=== PATIENT | female | born 1945 | race Caucasian/White ===

== ENCOUNTER 2018-01-29 18:02 | Inpatient (IN) | payer MEDICARE, BC ==
[~2018-01-29] VITALS: Ht 170.2 cm; Wt 88.5 kg
[~2018-01-29 18:02] MED LIST: ASPI-1160 PO; ATOR40TA70 PO; BUPR-102 PO; CHOL100046 PO; DORZ10DR9 EACHEYE; FLUO-124 PO; MULT-1146 PO; VIT1CAPS5 PO; XALAO EACHEYE; [UNRECOGNIZED DRUG - CODE] PO
[2018-01-29] MEDS ORDERED: IPRATROPIUM/ALBUTEROL 0.5-3(2.5)MG/3ML NEB HHN PRN (18:15)
[2018-01-29] MEDS ORDERED: ACETAMINOPHEN 325MG TABLET PO PRN (18:15)
[2018-01-29] MEDS ORDERED: LORAZEPAM 0.5MG TABLET PO PRN (18:15)
[2018-01-29] MEDS ORDERED: ONDANSETRON HCL 4MG TABLET PO PRN (18:15)
[2018-01-29] MEDS ORDERED: DIPHENHYDRAMINE 25MG CAPSULE PO PRN (18:15)
[2018-01-29] MEDS ORDERED: NITROGLYCERIN 0.4MG TABLET SL SL PRN (18:15)
[2018-01-29] MEDS ORDERED: HYDROCODONE/ACETAMINOPHEN 10/325MG TABLET PO PRN ×2 (18:15)
[2018-01-29] MEDS ORDERED: MORPHINE SULFATE 4 MG/ML CPJ (NOT FOR IM USE) IV PRN (18:15)
[2018-01-29 18:55] VITALS: BP 106/53
[2018-01-29 20:00] VITALS: BP 102/55
[2018-01-29] MEDS: FAMOTIDINE 20MG TABLET PO SCH (20:52)
[2018-01-29] MEDS: ASCORBIC ACID 500 MG TABLET PO SCH (20:52)
[2018-01-29] MEDS: SENNOSIDES/DOCUSATE SOD 8.6/50MG TABLET PO SCH (20:52)
[2018-01-29] MEDS: ATORVASTATIN CALCIUM 40MG TABLET PO SCH (20:52)
[2018-01-29 21:00] VITALS: BP 102/55
[2018-01-29] MEDS: METOPROLOL TARTRATE 25MG TABLET PO SCH (21:00)
[2018-01-30] MEDS: LATANOPROST 0.005% OPHTH DROPS 2.5ML EACHEYE SCH ×2 (03:08→21:09)
[2018-01-30 06:54] LABS: CHLORIDE 111 mEq/L (98-107)
[2018-01-30 07:05] LABS: PREALBUMIN 10.4 mg/dL (20.0-40.0)
[2018-01-30 07:22] LABS: BASOPHILS % 0.9 % (0.0-2.0); HEMATOCRIT. 24.9 % (36.0-48.0); HEMOGLOBIN. 8.8 g/dL (12.0-16.0); LYMPHOCYTES % 28.6 % (20.0-50.0); MEAN CORPUSCULAR HEMOGLOBIN 31.4 pg (28.0-32.0); MEAN CORPUSCULAR VOLUME 89.6 fL (81.0-99.0); MEAN PLATELET VOLUME 8.6 fl (7.4-10.4); MONOCYTES % 10.4 % (2.0-8.0); NEUTROPHILS % 53.1 % (40.0-76.0); PLATELET 215 x1000/uL (130-400); RED BLOOD CELL COUNT 2.78 mill/uL (4.2-5.4)
[2018-01-30 08:00] VITALS: BP 132/64
[2018-01-30] MEDS: FERROUS SULFATE 300MG/5ML UDC PO SCH ×3 (09:03→18:16)
[2018-01-30] MEDS: ASPIRIN 81MG TABLET PO SCH (09:04)
[2018-01-30] MEDS: METOPROLOL TARTRATE 25MG TABLET PO SCH ×2 (09:04→21:00)
[2018-01-30] MEDS: ASCORBIC ACID 500 MG TABLET PO SCH ×2 (09:05→21:04)
[2018-01-30] MEDS: ZINC SULFATE 220 MG ( 50 ) CAPSULE PO SCH (09:05)
[2018-01-30] MEDS: FAMOTIDINE 20MG TABLET PO SCH ×2 (09:05→21:04)
[2018-01-30] MEDS: FLUOXETINE HCL 20MG CAPSULE PO SCH (09:07)
[2018-01-30] MEDS: ENOXAPARIN 40MG/0.4ML SYR SUBCUT SCH (09:08)
[2018-01-30] MEDS: DORZOLAM/TIMOLOL 2.23/0.68% OPHTH DROPS 10ML BOTHEYE SCH ×2 (09:08→18:16)
[2018-01-30] MEDS ORDERED: POTASSIUM CHLORIDE 20MEQ/PACKET PO SCH (09:15)
[2018-01-30] MEDS: LACTULOSE 20G/30ML UDC PO SCH (12:14)
[2018-01-30] MEDS: DOCUSATE SODIUM 100MG CAPSULE PO SCH (18:15)
[2018-01-30 20:00] VITALS: BP 124/72
[2018-01-30] MEDS: POLYETHYLENE GLYCOL 3350 (17GM) 1 DOSE PACK PO SCH (21:02)
[2018-01-30] MEDS: SENNOSIDES/DOCUSATE SOD 8.6/50MG TABLET PO SCH (21:04)
[2018-01-30] MEDS: ATORVASTATIN CALCIUM 40MG TABLET PO SCH (21:04)
[2018-01-30] MEDS: OXYCODONE HCL 5MG TABLET PO PRN (21:08)
[2018-01-30 23:03] LABS: CLARITY URINE CLEAR (CLEAR); COLOR URINE YELLOW (YELLOW); KETONES URINE NEGATIVE (NEGATIVE); LEUKOCYTE ESTERASE URINE TRACE (NEGATIVE); NITRITE URINE NEGATIVE (NEGATIVE); OCCULT BLOOD URINE NEGATIVE (NEGATIVE); PROTEIN URINE NEGATIVE (NEGATIVE); SPECIFIC GRAVITY URINE 1.014 (1.005-1.030)
[2018-01-31 06:46] LABS: BASOPHILS % 1.1 % (0.0-2.0); EOSINOPHILS % 7.1 % (0.0-5.0); HEMATOCRIT. 25.1 % (36.0-48.0); HEMOGLOBIN. 8.5 g/dL (12.0-16.0); LYMPHOCYTES % 32.8 % (20.0-50.0); MEAN CORPUSCULAR HEMOGLOBIN 30.5 pg (28.0-32.0); MEAN CORPUSCULAR VOLUME 90.1 fL (81.0-99.0); MEAN PLATELET VOLUME 8.3 fl (7.4-10.4); MONOCYTES % 12.2 % (2.0-8.0); NEUTROPHILS % 46.8 % (40.0-76.0); PLATELET 252 x1000/uL (130-400); RED BLOOD CELL COUNT 2.79 mill/uL (4.2-5.4)
[2018-01-31 07:17] LABS: CHLORIDE 109 mEq/L (98-107)
[2018-01-31 08:00] VITALS: BP 129/58
[2018-01-31] MEDS: FLUOXETINE HCL 20MG CAPSULE PO SCH (08:17)
[2018-01-31] MEDS: OXYCODONE HCL 5MG TABLET PO PRN ×4 (08:19→12:59)
[2018-01-31] MEDS: FERROUS SULFATE 325MG TABLET PO SCH ×3 (08:21→17:56)
[2018-01-31] MEDS: ASCORBIC ACID 500 MG TABLET PO SCH ×2 (08:23→22:24)
[2018-01-31] MEDS: ASPIRIN 81MG TABLET PO SCH (08:23)
[2018-01-31] MEDS: DOCUSATE SODIUM 100MG CAPSULE PO SCH ×2 (08:23→17:56)
[2018-01-31] MEDS: ZINC SULFATE 220 MG ( 50 ) CAPSULE PO SCH (08:23)
[2018-01-31] MEDS: FAMOTIDINE 20MG TABLET PO SCH ×2 (08:24→22:24)
[2018-01-31] MEDS: METOPROLOL TARTRATE 25MG TABLET PO SCH ×2 (08:24→21:00)
[2018-01-31] MEDS: DORZOLAM/TIMOLOL 2.23/0.68% OPHTH DROPS 10ML BOTHEYE SCH ×2 (08:26→17:56)
[2018-01-31] MEDS: ENOXAPARIN 40MG/0.4ML SYR SUBCUT SCH (08:26)
[2018-01-31] MEDS: LACTULOSE 20G/30ML UDC PO SCH (08:26)
[2018-01-31] MEDS ORDERED: FERROUS SULFATE 325MG TABLET PO SCH (09:00)
[2018-01-31 10:49] LABS: HEPATITIS B SURFACE ANTIGEN NEGATIVE
[2018-01-31 11:15] LABS: HEPATITIS B CORE AB IGM NEGATIVE
[2018-01-31 11:17] LABS: HEPATITIS A AB IGM NEGATIVE (NEGATIVE)
[2018-01-31] MEDS ORDERED: POTASSIUM CHLORIDE 20MEQ/PACKET PO SCH (12:00)
[2018-01-31 20:00] VITALS: BP 107/50
[2018-01-31] MEDS: POLYETHYLENE GLYCOL 3350 (17GM) 1 DOSE PACK PO SCH (21:00)
[2018-01-31] MEDS: SENNOSIDES/DOCUSATE SOD 8.6/50MG TABLET PO SCH (22:24)
[2018-01-31] MEDS: ATORVASTATIN CALCIUM 40MG TABLET PO SCH (22:24)
[2018-01-31] MEDS: LATANOPROST 0.005% OPHTH DROPS 2.5ML EACHEYE SCH (22:25)
[2018-02-01 07:39] LABS: BASOPHILS % 1.1 % (0.0-2.0); EOSINOPHILS % 5.2 % (0.0-5.0); HEMATOCRIT. 26.1 % (36.0-48.0); HEMOGLOBIN. 8.9 g/dL (12.0-16.0); LYMPHOCYTES % 25.1 % (20.0-50.0); MEAN CORPUSCULAR HEMOGLOBIN 30.6 pg (28.0-32.0); MEAN PLATELET VOLUME 8.1 fl (7.4-10.4); MONOCYTES % 11.8 % (2.0-8.0); NEUTROPHILS % 56.8 % (40.0-76.0); PLATELET 296 x1000/uL (130-400); RED BLOOD CELL COUNT 2.91 mill/uL (4.2-5.4)
[2018-02-01 08:00] VITALS: BP 137/61
[2018-02-01] MEDS: FAMOTIDINE 20MG TABLET PO SCH ×2 (08:34→21:35)
[2018-02-01] MEDS: FERROUS SULFATE 325MG TABLET PO SCH ×3 (08:34→17:40)
[2018-02-01] MEDS: FLUOXETINE HCL 20MG CAPSULE PO SCH (08:34)
[2018-02-01] MEDS: OXYCODONE HCL 5MG TABLET PO PRN ×3 (08:34→20:34)
[2018-02-01] MEDS: ZINC SULFATE 220 MG ( 50 ) CAPSULE PO SCH (08:34)
[2018-02-01] MEDS: ASCORBIC ACID 500 MG TABLET PO SCH ×2 (08:34→21:35)
[2018-02-01] MEDS: ASPIRIN 81MG TABLET PO SCH (08:34)
[2018-02-01 08:37] LABS: CHLORIDE 108 mEq/L (98-107)
[2018-02-01] MEDS: METOPROLOL TARTRATE 25MG TABLET PO SCH ×2 (08:38→21:00)
[2018-02-01 08:46] LABS: HDL CHOLESTEROL 36 mg/dL (40-59)
[2018-02-01] MEDS: ENOXAPARIN 40MG/0.4ML SYR SUBCUT SCH (08:46)
[2018-02-01 08:48] LABS: LDL CHOLESTEROL 68 mg/dL (5-100); TOTAL IRON BINDING CAPACITY 243 ug/dL (250-450)
[2018-02-01 10:02] LABS: FERRITIN 71 ng/mL (10-291)
[2018-02-01 12:40] LABS: FOLIC ACID (FOLATE) SERUM >20 ng/mL ng/mL (>5.38)
[2018-02-01 12:51] LABS: VITAMIN B12 SERUM 421 pg/mL (211-911)
[2018-02-01] MEDS: DORZOLAM/TIMOLOL 2.23/0.68% OPHTH DROPS 10ML BOTHEYE SCH ×2 (12:53→17:41)
[2018-02-01 13:57] LABS: CLARITY URINE CLEAR (CLEAR); COLOR URINE YELLOW (YELLOW); KETONES URINE NEGATIVE (NEGATIVE); LEUKOCYTE ESTERASE URINE 2+ (NEGATIVE); NITRITE URINE NEGATIVE (NEGATIVE); OCCULT BLOOD URINE NEGATIVE (NEGATIVE); PH URINE 6.5 (4.5-8.0); PROTEIN URINE NEGATIVE (NEGATIVE); SPECIFIC GRAVITY URINE 1.014 (1.005-1.030)
[2018-02-01 20:00] VITALS: BP 120/72
[2018-02-01] MEDS: ATORVASTATIN CALCIUM 40MG TABLET PO SCH (21:35)
[2018-02-01] MEDS: LATANOPROST 0.005% OPHTH DROPS 2.5ML EACHEYE SCH (21:36)
[2018-02-01] MEDS: POLYETHYLENE GLYCOL 3350 (17GM) 1 DOSE PACK PO SCH (21:43)
[2018-02-02 08:00] VITALS: BP 129/65
[2018-02-02] MEDS: ZINC SULFATE 220 MG ( 50 ) CAPSULE PO SCH (08:33)
[2018-02-02] MEDS: ASPIRIN 81MG TABLET PO SCH (08:33)
[2018-02-02] MEDS: FAMOTIDINE 20MG TABLET PO SCH ×2 (08:33→21:08)
[2018-02-02] MEDS: FLUOXETINE HCL 20MG CAPSULE PO SCH (08:33)
[2018-02-02] MEDS: ENOXAPARIN 40MG/0.4ML SYR SUBCUT SCH (08:34)
[2018-02-02] MEDS: ASCORBIC ACID 500 MG TABLET PO SCH ×2 (08:34→21:08)
[2018-02-02] MEDS: FERROUS SULFATE 325MG TABLET PO SCH ×3 (08:34→17:00)
[2018-02-02] MEDS: METOPROLOL TARTRATE 25MG TABLET PO SCH ×2 (08:35→22:24)
[2018-02-02] MEDS: OXYCODONE HCL 5MG TABLET PO PRN ×3 (08:35→21:16)
[2018-02-02] MEDS: DORZOLAM/TIMOLOL 2.23/0.68% OPHTH DROPS 10ML BOTHEYE SCH ×2 (08:36→17:00)
[2018-02-02 20:00] VITALS: BP 130/66
[2018-02-02] MEDS: POLYETHYLENE GLYCOL 3350 (17GM) 1 DOSE PACK PO SCH (21:08)
[2018-02-02] MEDS: ATORVASTATIN CALCIUM 40MG TABLET PO SCH (21:08)
[2018-02-02] MEDS: LATANOPROST 0.005% OPHTH DROPS 2.5ML EACHEYE SCH (21:16)
[2018-02-03 06:39] LABS: CHLORIDE 108 mEq/L (98-107)
[2018-02-03 06:59] LABS: EOSINOPHILS % 5.9 % (0.0-5.0); HEMATOCRIT. 26.8 % (36.0-48.0); HEMOGLOBIN. 9.1 g/dL (12.0-16.0); LYMPHOCYTES % 28.6 % (20.0-50.0); MEAN CORPUSCULAR HEMOGLOBIN 31.3 pg (28.0-32.0); MEAN CORPUSCULAR VOLUME 91.6 fL (81.0-99.0); MEAN PLATELET VOLUME 8.2 fl (7.4-10.4); MONOCYTES % 12.3 % (2.0-8.0); NEUTROPHILS % 52.2 % (40.0-76.0); PLATELET 335 x1000/uL (130-400); RED BLOOD CELL COUNT 2.93 mill/uL (4.2-5.4); RED CELL DISTRIBUTION WIDTH 14.6 % (11.6-14.6)
[2018-02-03] MEDS: DORZOLAM/TIMOLOL 2.23/0.68% OPHTH DROPS 10ML BOTHEYE SCH ×2 (08:22→16:55)
[2018-02-03] MEDS: FERROUS SULFATE 325MG TABLET PO SCH ×3 (08:23→16:56)
[2018-02-03 08:24] VITALS: BP 124/70
[2018-02-03] MEDS: FLUOXETINE HCL 20MG CAPSULE PO SCH (08:24)
[2018-02-03] MEDS: ZINC SULFATE 220 MG ( 50 ) CAPSULE PO SCH (08:24)
[2018-02-03] MEDS: ASCORBIC ACID 500 MG TABLET PO SCH ×2 (08:24→20:01)
[2018-02-03] MEDS: METOPROLOL TARTRATE 25MG TABLET PO SCH ×2 (08:25→20:02)
[2018-02-03] MEDS: ASPIRIN 81MG TABLET PO SCH (08:25)
[2018-02-03] MEDS: FAMOTIDINE 20MG TABLET PO SCH ×2 (08:26→20:01)
[2018-02-03] MEDS: OXYCODONE HCL 5MG TABLET PO PRN ×3 (08:27→21:00)
[2018-02-03] MEDS: ENOXAPARIN 40MG/0.4ML SYR SUBCUT SCH (08:28)
[2018-02-03 20:00] VITALS: BP 111/51
[2018-02-03] MEDS: LATANOPROST 0.005% OPHTH DROPS 2.5ML EACHEYE SCH (20:01)
[2018-02-03] MEDS: ATORVASTATIN CALCIUM 40MG TABLET PO SCH (20:01)
[2018-02-03] MEDS: POLYETHYLENE GLYCOL 3350 (17GM) 1 DOSE PACK PO SCH (20:01)
[2018-02-04 08:00] VITALS: BP 127/55
[2018-02-04] MEDS: ASPIRIN 81MG TABLET PO SCH (09:27)
[2018-02-04] MEDS: FERROUS SULFATE 325MG TABLET PO SCH ×3 (09:27→17:02)
[2018-02-04] MEDS: FLUOXETINE HCL 20MG CAPSULE PO SCH (09:27)
[2018-02-04] MEDS: DORZOLAM/TIMOLOL 2.23/0.68% OPHTH DROPS 10ML BOTHEYE SCH ×2 (09:28→17:02)
[2018-02-04] MEDS: FAMOTIDINE 20MG TABLET PO SCH ×2 (09:28→20:30)
[2018-02-04] MEDS: ENOXAPARIN 40MG/0.4ML SYR SUBCUT SCH (09:28)
[2018-02-04] MEDS: ZINC SULFATE 220 MG ( 50 ) CAPSULE PO SCH (09:28)
[2018-02-04] MEDS: ASCORBIC ACID 500 MG TABLET PO SCH ×2 (09:28→20:30)
[2018-02-04] MEDS: METOPROLOL TARTRATE 25MG TABLET PO SCH ×2 (09:28→20:33)
[2018-02-04] MEDS: OXYCODONE HCL 5MG TABLET PO PRN ×2 (11:07→22:14)
[2018-02-04 20:00] VITALS: BP 121/56
[2018-02-04] MEDS: POLYETHYLENE GLYCOL 3350 (17GM) 1 DOSE PACK PO SCH (20:30)
[2018-02-04] MEDS: LATANOPROST 0.005% OPHTH DROPS 2.5ML EACHEYE SCH (20:30)
[2018-02-04] MEDS: ATORVASTATIN CALCIUM 40MG TABLET PO SCH (20:30)
[2018-02-05 04:12] LABS: 25-HYDROXY VITAMIN D3 27 ng/mL (.)
[2018-02-05 08:10] VITALS: BP 127/62
[2018-02-05] MEDS: DORZOLAM/TIMOLOL 2.23/0.68% OPHTH DROPS 10ML BOTHEYE SCH ×2 (08:41→16:37)
[2018-02-05] MEDS: ENOXAPARIN 40MG/0.4ML SYR SUBCUT SCH (08:42)
[2018-02-05] MEDS: FAMOTIDINE 20MG TABLET PO SCH ×2 (08:42→20:42)
[2018-02-05] MEDS: OXYCODONE HCL 5MG TABLET PO PRN ×3 (08:43→20:43)
[2018-02-05] MEDS: FERROUS SULFATE 325MG TABLET PO SCH ×3 (08:44→16:38)
[2018-02-05] MEDS: ASCORBIC ACID 500 MG TABLET PO SCH ×2 (08:44→20:42)
[2018-02-05] MEDS: ASPIRIN 81MG TABLET PO SCH (08:44)
[2018-02-05] MEDS: ZINC SULFATE 220 MG ( 50 ) CAPSULE PO SCH (08:45)
[2018-02-05] MEDS: FLUOXETINE HCL 20MG CAPSULE PO SCH (08:45)
[2018-02-05] MEDS: METOPROLOL TARTRATE 25MG TABLET PO SCH ×2 (09:00→22:00)
[2018-02-05 13:59] LABS: BASOPHILS % 0.2 % (0.0-2.0); EOSINOPHILS % 4.8 % (0.0-5.0); HEMATOCRIT. 28.8 % (36.0-48.0); HEMOGLOBIN. 9.8 g/dL (12.0-16.0); LYMPHOCYTES % 28.1 % (20.0-50.0); MEAN CORPUSCULAR HEMOGLOBIN 31.6 pg (28.0-32.0); MEAN CORPUSCULAR VOLUME 92.8 fL (81.0-99.0); MEAN PLATELET VOLUME 8.5 fl (7.4-10.4); MONOCYTES % 12.3 % (2.0-8.0); NEUTROPHILS % 54.6 % (40.0-76.0); PLATELET 389 x1000/uL (130-400); RED BLOOD CELL COUNT 3.11 mill/uL (4.2-5.4); RED CELL DISTRIBUTION WIDTH 14.7 % (11.6-14.6)
[2018-02-05 14:15] LABS: CHLORIDE 108 mEq/L (98-107)
[2018-02-05] MEDS ORDERED: ERGOCALCIFEROL 50000UNITS CAPSULE PO SCH (16:30)
[2018-02-05 20:00] VITALS: BP 119/60
[2018-02-05] MEDS: ATORVASTATIN CALCIUM 40MG TABLET PO SCH (20:42)
[2018-02-05] MEDS: LATANOPROST 0.005% OPHTH DROPS 2.5ML EACHEYE SCH (20:44)
[2018-02-05] MEDS: POLYETHYLENE GLYCOL 3350 (17GM) 1 DOSE PACK PO SCH (20:44)
[2018-02-06 08:00] VITALS: BP 128/50
[2018-02-06] MEDS: FERROUS SULFATE 325MG TABLET PO SCH ×3 (08:19→17:12)
[2018-02-06] MEDS: ASCORBIC ACID 500 MG TABLET PO SCH ×2 (08:21→21:15)
[2018-02-06] MEDS: ZINC SULFATE 220 MG ( 50 ) CAPSULE PO SCH (08:21)
[2018-02-06] MEDS: FAMOTIDINE 20MG TABLET PO SCH ×2 (08:22→21:15)
[2018-02-06] MEDS: FLUOXETINE HCL 20MG CAPSULE PO SCH (08:22)
[2018-02-06] MEDS: OXYCODONE HCL 5MG TABLET PO PRN ×2 (08:23→13:09)
[2018-02-06] MEDS: ENOXAPARIN 40MG/0.4ML SYR SUBCUT SCH (08:24)
[2018-02-06] MEDS: DORZOLAM/TIMOLOL 2.23/0.68% OPHTH DROPS 10ML BOTHEYE SCH ×2 (08:24→17:12)
[2018-02-06] MEDS: METOPROLOL TARTRATE 25MG TABLET PO SCH ×2 (09:00→21:00)
[2018-02-06] MEDS: ASPIRIN 81MG TABLET PO SCH (10:33)
[2018-02-06 20:00] VITALS: BP 105/49
[2018-02-06] MEDS: ATORVASTATIN CALCIUM 40MG TABLET PO SCH (21:15)
[2018-02-06] MEDS: POLYETHYLENE GLYCOL 3350 (17GM) 1 DOSE PACK PO SCH (21:16)
[2018-02-06] MEDS: LATANOPROST 0.005% OPHTH DROPS 2.5ML EACHEYE SCH (21:20)
[2018-02-07] MEDS: OXYCODONE HCL 5MG TABLET PO PRN ×4 (00:48→21:05)
[2018-02-07 06:28] LABS: BASOPHILS % 1.3 % (0.0-2.0); EOSINOPHILS % 5.8 % (0.0-5.0); HEMATOCRIT. 28.6 % (36.0-48.0); HEMOGLOBIN. 9.6 g/dL (12.0-16.0); LYMPHOCYTES % 26.9 % (20.0-50.0); MEAN CORPUSCULAR HEMOGLOBIN 31.1 pg (28.0-32.0); MEAN CORPUSCULAR VOLUME 92.2 fL (81.0-99.0); MEAN PLATELET VOLUME 7.9 fl (7.4-10.4); MONOCYTES % 11.3 % (2.0-8.0); NEUTROPHILS % 54.7 % (40.0-76.0); PLATELET 351 x1000/uL (130-400); RED CELL DISTRIBUTION WIDTH 15.2 % (11.6-14.6)
[2018-02-07 07:49] LABS: CHLORIDE 108 mEq/L (98-107)
[2018-02-07 08:00] VITALS: BP 110/63
[2018-02-07] MEDS: ZINC SULFATE 220 MG ( 50 ) CAPSULE PO SCH (08:18)
[2018-02-07] MEDS: ASPIRIN 81MG TABLET PO SCH (08:18)
[2018-02-07] MEDS: FAMOTIDINE 20MG TABLET PO SCH ×2 (08:18→20:56)
[2018-02-07] MEDS: FERROUS SULFATE 325MG TABLET PO SCH ×3 (08:18→17:36)
[2018-02-07] MEDS: FLUOXETINE HCL 20MG CAPSULE PO SCH (08:18)
[2018-02-07] MEDS: ASCORBIC ACID 500 MG TABLET PO SCH ×2 (08:18→20:56)
[2018-02-07] MEDS: METOPROLOL TARTRATE 25MG TABLET PO SCH ×2 (08:19→20:55)
[2018-02-07] MEDS: ENOXAPARIN 40MG/0.4ML SYR SUBCUT SCH (08:19)
[2018-02-07] MEDS: DORZOLAM/TIMOLOL 2.23/0.68% OPHTH DROPS 10ML BOTHEYE SCH ×2 (08:20→17:36)
[2018-02-07 20:00] VITALS: BP 112/52
[2018-02-07] MEDS: ATORVASTATIN CALCIUM 40MG TABLET PO SCH (20:56)
[2018-02-07] MEDS: POLYETHYLENE GLYCOL 3350 (17GM) 1 DOSE PACK PO SCH (20:56)
[2018-02-07] MEDS: LATANOPROST 0.005% OPHTH DROPS 2.5ML EACHEYE SCH (20:56)
[2018-02-08 08:00] VITALS: BP 118/59
[2018-02-08] MEDS: DORZOLAM/TIMOLOL 2.23/0.68% OPHTH DROPS 10ML BOTHEYE SCH ×2 (08:06→16:34)
[2018-02-08] MEDS: ZINC SULFATE 220 MG ( 50 ) CAPSULE PO SCH (08:07)
[2018-02-08] MEDS: FLUOXETINE HCL 20MG CAPSULE PO SCH (08:07)
[2018-02-08] MEDS: ASPIRIN 81MG TABLET PO SCH (08:07)
[2018-02-08] MEDS: FERROUS SULFATE 325MG TABLET PO SCH ×3 (08:07→16:35)
[2018-02-08] MEDS: ENOXAPARIN 40MG/0.4ML SYR SUBCUT SCH (08:07)
[2018-02-08] MEDS: ASCORBIC ACID 500 MG TABLET PO SCH ×2 (08:08→21:00)
[2018-02-08] MEDS: FAMOTIDINE 20MG TABLET PO SCH ×2 (08:08→21:00)
[2018-02-08] MEDS: OXYCODONE HCL 5MG TABLET PO PRN ×2 (08:11→13:45)
[2018-02-08] MEDS: METOPROLOL TARTRATE 25MG TABLET PO SCH ×2 (09:00→21:00)
[2018-02-08 10:30] VITALS: BP 122/52
[2018-02-08] MEDS: LIDOCAINE HCL 4% CREAM 76GM TUBE TP SCH ×4 (10:40→21:00)
[2018-02-08 13:35] VITALS: BP 112/74
[2018-02-08 20:00] VITALS: BP 116/62
[2018-02-08] MEDS: ATORVASTATIN CALCIUM 40MG TABLET PO SCH (21:00)
[2018-02-08] MEDS: LATANOPROST 0.005% OPHTH DROPS 2.5ML EACHEYE SCH (21:01)
[2018-02-08] MEDS: POLYETHYLENE GLYCOL 3350 (17GM) 1 DOSE PACK PO SCH (21:01)
[2018-02-09] MEDS: OXYCODONE HCL 5MG TABLET PO PRN ×2 (06:56→21:21)
[2018-02-09 08:00] VITALS: BP 118/62
[2018-02-09] MEDS: LIDOCAINE HCL 4% CREAM 76GM TUBE TP SCH ×4 (09:00→21:00)
[2018-02-09] MEDS: DORZOLAM/TIMOLOL 2.23/0.68% OPHTH DROPS 10ML BOTHEYE SCH ×2 (09:09→17:46)
[2018-02-09] MEDS: ASPIRIN 81MG TABLET PO SCH (09:10)
[2018-02-09] MEDS: ASCORBIC ACID 500 MG TABLET PO SCH ×2 (09:10→21:16)
[2018-02-09] MEDS: FERROUS SULFATE 325MG TABLET PO SCH ×3 (09:10→17:46)
[2018-02-09] MEDS: FAMOTIDINE 20MG TABLET PO SCH ×2 (09:10→21:16)
[2018-02-09] MEDS: FLUOXETINE HCL 20MG CAPSULE PO SCH (09:10)
[2018-02-09] MEDS: ZINC SULFATE 220 MG ( 50 ) CAPSULE PO SCH (09:10)
[2018-02-09] MEDS: ENOXAPARIN 40MG/0.4ML SYR SUBCUT SCH (09:11)
[2018-02-09] MEDS: METOPROLOL TARTRATE 25MG TABLET PO SCH ×2 (09:11→21:00)
[2018-02-09 20:00] VITALS: BP 112/54
[2018-02-09] MEDS ORDERED: OXYCODONE HCL 5MG TABLET PO PRN (21:00)
[2018-02-09] MEDS: LATANOPROST 0.005% OPHTH DROPS 2.5ML EACHEYE SCH (21:16)
[2018-02-09] MEDS: POLYETHYLENE GLYCOL 3350 (17GM) 1 DOSE PACK PO SCH (21:16)
[2018-02-09] MEDS: ATORVASTATIN CALCIUM 40MG TABLET PO SCH (21:16)
[2018-02-10 08:00] VITALS: BP 120/52
[2018-02-10] MEDS: LIDOCAINE HCL 4% CREAM 76GM TUBE TP SCH ×2 (09:00→12:49)
[2018-02-10] MEDS: METOPROLOL TARTRATE 25MG TABLET PO SCH ×2 (09:00→10:42)
[2018-02-10] MEDS: ZINC SULFATE 220 MG ( 50 ) CAPSULE PO SCH (09:07)
[2018-02-10] MEDS: DORZOLAM/TIMOLOL 2.23/0.68% OPHTH DROPS 10ML BOTHEYE SCH (09:07)
[2018-02-10] MEDS: FAMOTIDINE 20MG TABLET PO SCH (09:07)
[2018-02-10] MEDS: ASCORBIC ACID 500 MG TABLET PO SCH (09:08)
[2018-02-10] MEDS: FLUOXETINE HCL 20MG CAPSULE PO SCH (09:08)
[2018-02-10] MEDS: FERROUS SULFATE 325MG TABLET PO SCH ×2 (09:08→12:49)
[2018-02-10] MEDS: ASPIRIN 81MG TABLET PO SCH (09:08)
[2018-02-10] MEDS: OXYCODONE HCL 5MG TABLET PO PRN (09:12)
[2018-02-10] MEDS: ENOXAPARIN 40MG/0.4ML SYR SUBCUT SCH (09:13)
[2018-02-10 11:19] VITALS: BP 128/67
== END 2018-02-10 13:55 | disposition home or self-care (01) | DRG 535 ==
PROVIDERS: ADMIT Physical Medicine & Rehabilitation Spinal Cord Injury Medicine; ATTEND Internal Medicine
DX: S72.142A Displaced intertrochanteric fracture of left femur, initial encounter for closed fracture (principal); E43 Unspecified severe protein-calorie malnutrition; D64.9 Anemia, unspecified; E11.9 Type 2 diabetes mellitus without complications; R71.0 Precipitous drop in hematocrit; D62 Acute posthemorrhagic anemia; E83.51 Hypocalcemia; F33.1 Major depressive disorder, recurrent, moderate; D72.829 Elevated white blood cell count, unspecified; M16.10 Unilateral primary osteoarthritis, unspecified hip; M47.896 Other spondylosis, lumbar region; K59.00 Constipation, unspecified; Z96.653 Presence of artificial knee joint, bilateral; F41.9 Anxiety disorder, unspecified; E78.00 Pure hypercholesterolemia, unspecified; H40.9 Unspecified glaucoma; I10 Essential (primary) hypertension; Z60.2 Problems related to living alone; M79.609 Pain in unspecified limb; R26.9 Unspecified abnormalities of gait and mobility; R53.81 Other malaise; E66.9 Obesity, unspecified; K76.0 Fatty (change of) liver, not elsewhere classified; K80.20 Calculus of gallbladder without cholecystitis without obstruction; E55.9 Vitamin D deficiency, unspecified; E87.6 Hypokalemia; R74.0 Nonspecific elevation of levels of transaminase and lactic acid dehydrogenase [LDH]; W18.39XA Other fall on same level, initial encounter; Y93.01 Activity, walking, marching and hiking; Y92.89 Other specified places as the place of occurrence of the external cause; Y99.8 Other external cause status; Z90.710 Acquired absence of both cervix and uterus; Z91.041 Radiographic dye allergy status; Z85.72 Personal history of non-Hodgkin lymphomas; Z92.21 Personal history of antineoplastic chemotherapy
CPT/HCPCS: 36415; 76700; 80053; 80061; 80076; 81003; 82270; 82306; 82607; 82728; 82746; 83036; 83540; 83550; 83735; 84100; 84134; 84443; 84630; 85025; 86705; 86709; 86803; 87040; 87086; 87340; 93970; 97110; 97116; 97162; 97166; 97530; 97535; A6261; J1650